=== PATIENT | female | born 1955 | race Caucasian/White ===

== ENCOUNTER 2019-02-02 13:18 | Day surgery (SDC) | payer OTHER ==
[~2019-02-02] VITALS: Ht 152.4 cm; Wt 69.3 kg
[~2019-02-02 13:18] MED LIST: atorvastatin; ibuprofen; lisinopril; sertraline
[2019-02-02] MEDS ORDERED: PROPOFOL 40 ML ONE (13:37)
[2019-02-02 13:45] VITALS: Ht 152.4 cm; Wt 69.3 kg
[2019-02-02 14:06] VITALS: BP 137/69; PULSE 104; RESP 20
[2019-02-02 14:49] VITALS: BP 122/88; PULSE 78
== END 2019-02-02 15:32 | disposition home or self-care (01) ==
LOC: GIL 13:18
PROVIDERS: ATTEND Internal Medicine Gastroenterology
DX: Z12.11 Encounter for screening for malignant neoplasm of colon (principal); K64.4 Residual hemorrhoidal skin tags; K57.30 Diverticulosis of large intestine without perforation or abscess without bleeding; K29.50 Unspecified chronic gastritis without bleeding; I10 Essential (primary) hypertension; E78.5 Hyperlipidemia, unspecified
CPT/HCPCS: 43239; 45378; 88305; 88312; Z7610